=== PATIENT | female | born 1955 | race Caucasian/White ===

== ENCOUNTER 2024-02-23 12:33 | Outpatient (CLI) | payer MEDICARE | END 2024-02-23 12:34 | disposition home or self-care (01) | LOC: CSHWCC 12:33 | PROVIDERS: ATTEND Nurse Practitioner Family | DX: E11.621 Type 2 diabetes mellitus with foot ulcer (principal); L97.512 Non-pressure chronic ulcer of other part of right foot with fat layer exposed; D50.9 Iron deficiency anemia, unspecified | CPT/HCPCS: 11042; G0463; 99213 ==

== ENCOUNTER 2024-03-20 11:44 | Outpatient (CLI) | payer MEDICARE | END 2024-03-20 11:45 | disposition home or self-care (01) | LOC: CSHWCC 11:44 | PROVIDERS: ATTEND Nurse Practitioner Family | DX: E11.621 Type 2 diabetes mellitus with foot ulcer (principal); L97.512 Non-pressure chronic ulcer of other part of right foot with fat layer exposed; D50.9 Iron deficiency anemia, unspecified | CPT/HCPCS: 11042 ==

== ENCOUNTER 2024-03-27 14:43 | Outpatient (CLI) | payer MEDICARE | END 2024-03-27 14:44 | disposition home or self-care (01) | LOC: CSHWCC 14:43 | PROVIDERS: ATTEND Nurse Practitioner Family | DX: E11.621 Type 2 diabetes mellitus with foot ulcer (principal); L97.512 Non-pressure chronic ulcer of other part of right foot with fat layer exposed; E11.622 Type 2 diabetes mellitus with other skin ulcer; L97.322 Non-pressure chronic ulcer of left ankle with fat layer exposed; D50.9 Iron deficiency anemia, unspecified | CPT/HCPCS: 11042; G0463; 99212 ==

== ENCOUNTER 2024-04-03 13:51 | Outpatient (CLI) | payer MEDICARE | END 2024-04-03 13:52 | disposition home or self-care (01) | LOC: CSHWCC 13:51 | PROVIDERS: ATTEND Nurse Practitioner Family | DX: E11.621 Type 2 diabetes mellitus with foot ulcer (principal); L97.512 Non-pressure chronic ulcer of other part of right foot with fat layer exposed; L97.322 Non-pressure chronic ulcer of left ankle with fat layer exposed; D50.9 Iron deficiency anemia, unspecified | CPT/HCPCS: 11042 ==

== ENCOUNTER 2024-04-10 13:55 | Outpatient (CLI) | payer MEDICARE | END 2024-04-10 13:56 | disposition home or self-care (01) | LOC: CSHWCC 13:55 | PROVIDERS: ATTEND Nurse Practitioner Family | DX: E11.621 Type 2 diabetes mellitus with foot ulcer (principal); L97.512 Non-pressure chronic ulcer of other part of right foot with fat layer exposed; L97.322 Non-pressure chronic ulcer of left ankle with fat layer exposed; D50.9 Iron deficiency anemia, unspecified | CPT/HCPCS: 11042; 97597 ==

== ENCOUNTER 2024-04-24 13:17 | Outpatient (CLI) | payer MEDICARE | END 2024-04-24 13:18 | disposition home or self-care (01) | LOC: CSHWCC 13:17 | PROVIDERS: ATTEND Nurse Practitioner Family | DX: E11.621 Type 2 diabetes mellitus with foot ulcer (principal); L97.512 Non-pressure chronic ulcer of other part of right foot with fat layer exposed; E11.622 Type 2 diabetes mellitus with other skin ulcer; L97.322 Non-pressure chronic ulcer of left ankle with fat layer exposed; D50.9 Iron deficiency anemia, unspecified | CPT/HCPCS: 99213; G0463 ==

== ENCOUNTER 2024-05-08 13:01 | Outpatient (CLI) | payer MEDICARE | END 2024-05-08 13:02 | disposition home or self-care (01) | LOC: CSHWCC 13:01 | PROVIDERS: ATTEND Nurse Practitioner Family | DX: D50.9 Iron deficiency anemia, unspecified (principal); Z86.31 Personal history of diabetic foot ulcer | CPT/HCPCS: 99212; G0463 ==

== ENCOUNTER 2025-01-15 12:33 | Outpatient (CLI) | payer MEDICARE | END 2025-01-15 12:34 | disposition home or self-care (01) | LOC: CSHWCC 12:33 | PROVIDERS: ATTEND Nurse Practitioner Family | DX: E11.621 Type 2 diabetes mellitus with foot ulcer (principal); L97.509 Non-pressure chronic ulcer of other part of unspecified foot with unspecified severity; E11.622 Type 2 diabetes mellitus with other skin ulcer; L97.111 Non-pressure chronic ulcer of right thigh limited to breakdown of skin | CPT/HCPCS: 11042; 99213; G0463 ==

== ENCOUNTER 2025-01-22 10:21 | Outpatient (CLI) | payer MEDICARE | END 2025-01-22 10:22 | disposition home or self-care (01) | LOC: CSHWCC 10:21 | PROVIDERS: ATTEND Nurse Practitioner Family | DX: E11.621 Type 2 diabetes mellitus with foot ulcer (principal); L97.509 Non-pressure chronic ulcer of other part of unspecified foot with unspecified severity; E11.622 Type 2 diabetes mellitus with other skin ulcer; L97.111 Non-pressure chronic ulcer of right thigh limited to breakdown of skin | CPT/HCPCS: 97597 ==